=== PATIENT | female | born 1935 | race Caucasian/White ===

== ENCOUNTER → 2016-09-17 | Outpatient (CLI) | payer MEDICARE ==
[~2016-09-17] MED LIST: ASCO1TAB39 PO; CALC600T12 PO; DENO60DI SQ; DILT240C87 PO; FRSM40T PO; GBPN300C PO; KCL20TCR PO; LEVO100T7 PO; PANT40TA2 PO; WRF2T PO
--- NOTE | 2016-09-17 13:45 | Diagnostic Imaging Report ---
INDICATION: Diaphragmatic hernia. [employer] film of the chest shows esophageal hiatal hernia with surgical clips from cholecystectomy. Multilevel degenerative changes seen in the spine. Exam is technically limited because of patient's condition and kyphosis. We started with the patient in the upright position. She swallowed thin barium, and multiple image were obtained. Subsequently, the table was tilted, and multiple additional images were obtained with the patient in frontal, oblique, and lateral projections. A large hiatal hernia is present. Nearly the entire stomach is within the chest. The antrum and pylorus appear to extend through the esophageal hiatus. The EG junction is above the diaphragm. The stomach shows organoaxial rotation. There is no significant limitation of flow of barium from the stomach, through the esophageal hiatus, and into the duodenum. The pyloric channel is within normal limits. Duodenal bulb is unremarkable. The ligament of Treitz is in normal position. No ulceration or mass was identified. No obvious esophageal stricture is seen. IMPRESSION: 1. Large esophageal hiatal hernia. 2. Organoaxial rotation of the stomach. No obstruction is identified. Dictated by: Dictated on workstation # [id number]
== END ==
LOC: RAD 09:29
PROVIDERS: ATTEND Surgery
DX: K44.9 Diaphragmatic hernia without obstruction or gangrene (principal)
CPT/HCPCS: 74241